=== PATIENT | female | born 1940 | race Caucasian/White ===

== ENCOUNTER → 2016-07-31 | Outpatient (CLI) | payer OTHER, BC ==
[~2016-07-31] MED LIST: ACCUNEB SO1.25 MG/1 INH; ADVAIR 500-501 EACH INH; ALBUTEROL2.5 MG/0.5 INH; ALDACTONE50 MG PO; ALLOPURINOL 30300 M1 PO; ASPIR 8181 MG PO; BYSTOLIC 5 MG5 M1 PO; COUMADIN 2 MG TA2 M1 PO; DILTIAZEM 24HR240 M2 PO; IMURAN 50MG TAB50 M1 PO; NEXIUM40 MG PO; PROAIR HFA8.5 GM INH; PROZAC20 MG PO; SINGULAIR 10 MG10 M1 PO; SYNTHROID137 MCG PO; TORSEMIDE20 MG PO; UROXATRAL PO; VERAMYST10 GM SPRAY; VITAMIN D 5050000 I1 PO
== END ==
LOC: RAD 09:43
DX: J45.909 Unspecified asthma, uncomplicated (principal); R06.00 Dyspnea, unspecified

== ENCOUNTER → 2016-08-08 | Outpatient (CLI) | payer OTHER, BC | LOC: CAT 07:15 | DX: M33.90 Dermatopolymyositis, unspecified, organ involvement unspecified (principal); R06.00 Dyspnea, unspecified ==

== ENCOUNTER → 2016-10-14 | Outpatient (CLI) | payer OTHER, BC | LOC: RAD 17:15 | DX: M25.571 Pain in right ankle and joints of right foot (principal); M33.90 Dermatopolymyositis, unspecified, organ involvement unspecified; R06.89 Other abnormalities of breathing ==

== ENCOUNTER → 2017-02-12 | Outpatient (CLI) | payer OTHER, BC ==
[2017-02-12 13:11] LABS: ABG SAMPLE TYPE ARTERIAL; BE(vivo) 1.9 mmol/L (-2 to +3); HCO3 24.7 mmol/L (22.0-26.0); LACTATE 1.04 mmol/L (0.5-2.0); O2(CT) 17.9 mL/dL (15.0-23.0); O2Hb 93.5 % (92.0-98.0); PCO2 33.1 mmHg (35.0-45.0); sO2 94.8 % (92.0-98.0); tCO2 25.7 mmol/L (24.0-30.0)
[2017-02-12 13:12] LABS: STICK SITE R.BRACHIAL
== END ==
LOC: PUL 12:48
PROVIDERS: Internal Medicine Pulmonary Disease
DX: J98.6 Disorders of diaphragm (principal)

== ENCOUNTER → 2019-01-06 | Outpatient (CLI) | payer OTHER, BC | LOC: RAD 13:09 | DX: M47.819 Spondylosis without myelopathy or radiculopathy, site unspecified (principal); R06.02 Shortness of breath ==